=== PATIENT | male | born 1965 | race Caucasian/White ===

== ENCOUNTER 2022-05-02 09:22 | Emergency (ER) | payer SELFPAY ==
[2022-05-02] MEDS ORDERED: Boostrix 0.5 ML (Tdap) VIAL (>/=7 yrs of age) ONE (09:56)
[2022-05-02] MEDS ORDERED: Bupivacaine 0.5% 10 ML VIAL ONE (09:56)
[2022-05-02] MEDS ORDERED: Amoxicillin/Potassium Clav 875 MG TAB ONE (11:02)
== END 2022-05-02 11:25 | disposition home or self-care (01) ==
LOC: BURERS 09:22
DX: S62.637A Displaced fracture of distal phalanx of left little finger, initial encounter for closed fracture (principal); S61.355A Open bite of left ring finger with damage to nail, initial encounter; S61.357A Open bite of left little finger with damage to nail, initial encounter; W54.0XXA Bitten by dog, initial encounter
CPT/HCPCS: 11760; 12041; 90471; 90715; J3490